=== PATIENT | male | born 1985 | race Caucasian/White ===

== ENCOUNTER 2017-11-24 10:22 | Emergency (ER) | payer OTHER ==
[~2017-11-24] VITALS: Ht 160 cm; Wt 59.0 kg
[~2017-11-24 10:22] MED LIST: ALBU1.25 NEB; ALBU18HF IH; AZIT250T PO; PRED20TA PO; PRED50TA PO
[2017-11-24 10:48] VITALS: BP 113/76
[2017-11-24] MEDS ORDERED: HYDR25TA PO (11:04)
[2017-11-24] MEDS ORDERED: PERM60CR12 TP (11:04)
--- NOTE | 2017-11-24 11:04 | PHYS DOC ---
Past History Past Medical History: Asthma Past Surgical History: No Surgical History Smoking: Cigarettes, Greater than 1 pack/day Alcohol Use: None Drug Use: None Adult General Chief Complaint Chief Complaint: SKIN RASH/ABSCESS HPI HPI Patient is a 31 year old male who presents with complaining of rash. Patient complaining of pruritic rash for few days that getting gradually worse and has more itching at night. Patient states he spent time at his friend's house who had the same rash. Patient denies fever and chills, shortness of breath, history of rash. Review of Systems Review of Systems Constitutional: Denies fever or chills [] Eyes: Denies change in visual acuity, redness, or eye pain [] HENT: Denies nasal congestion or sore throat [] Respiratory: Denies cough or shortness of breath [] Cardiovascular: No additional information not addressed in HPI [] GI: Denies abdominal pain, nausea, vomiting, bloody stools or diarrhea [] : Denies dysuria or hematuria [] Musculoskeletal: Denies back pain or joint pain [] Integument: Denies rash or skin lesions [] Neurologic: Denies headache, focal weakness or sensory changes [] Endocrine: Denies polyuria or polydipsia [] All other systems were reviewed and found to be within normal limits, except as documented in this note. Allergies Allergies Allergies Coded Allergies Type Severity Reaction Last Updated Verified No Known Drug Allergies 07/08/14 No Physical Exam Physical Exam Constitutional: Well developed, well nourished, mild distress, non-toxic appearance. [] HENT: Normocephalic, atraumatic, oropharynx moist, no oral exudates, nose normal. [] Eyes: PERRLA, EOMI, conjunctiva normal, no discharge. [] Neck: Normal range of motion, no tenderness, supple, no stridor. [] Cardiovascular:Heart rate regular rhythm, no murmur [] Lungs & Thorax: Bilateral breath sounds clear to auscultation [] Skin: Warm, dry, pruritic rash on upper and lower extremity and trunk and between fingers web Back: No tenderness, no CVA tenderness. [] Extremities: No tenderness, no cyanosis, no clubbing, ROM intact, no edema. [] Neurologic: Alert and oriented X 3, normal motor function, normal sensory function, no focal deficits noted. [] Psychologic: Affect normal, judgement normal, mood normal. [] Current Patient Data Vital Signs Vital Signs Date Time Temp Pulse Resp B/P (MAP) Pulse Ox O2 Delivery O2 Flow Rate FiO2 11/24/17 10:48 98.1 76 18 100 Room Air EKG EKG [] Radiology/Procedures Radiology/Procedures [] Course & Med Decision Making Course & Med Decision Making discharge: I've spoken with the patient and/or caregivers. I've explained the patient's condition, diagnosis and treatment plan based on information available to me at this time. I've answered the patient's and/or caregivers questions and addressed any concerns. The patient and/or caregivers have a good understanding the patient's diagnosis, condition and treatment plan as can be expected at this point. Vital signs have been stabilized. The patient's condition is stable for discharge from the emergency department. The patient will pursue further outpatient evaluation with her primary care provider or other designated consulting physician as outlined in the discharge instructions. Patient and/or caregivers are agreeable to this plan of care and follow-up instructions have been explained in detail. The patient and/or caregivers have received these instructions in written format and expressed understanding of these discharge instructions. The patient and her caregivers are aware that if any significant change in condition or worsening of symptoms should prompt him to immediately return to this of the closest emergency department. If an emergent department is not readily available I would encourage him to call 911. Mervin Disclaimer Dragon Disclaimer This electronic medical record was generated, in whole or in part, using a voice recognition dictation system. Departure Departure: Impression: Primary Impression: Scabies Disposition: HOME, SELF-CARE (at 1101) Condition: STABLE Referrals: PCP,NO (PCP) Patient Instructions: Scabies Additional Instructions: Follow-up with your primary care physician in 3-5 days Return to ER if not getting better Scripts Hydroxyzine Hcl (HYDROXYZINE HCL) 25 Mg Tablet 1 TAB PO TID PRN for ITCHING, #30 TAB Prov: OSWALDO POZO MD 11/24/17 Permethrin (PERMETHRIN) 60 Gm Cream..g. 1 [place] TP ONCE, #60 GM 1 Refill Prov: OSWALDO POZO MD 11/24/17 OSWALDO POZO MD Nov 24, 2017 11:04
== END 2017-11-24 11:10 | disposition home or self-care (01) ==
LOC: ER 10:22
DX: B86 Scabies (principal); J45.909 Unspecified asthma, uncomplicated; F17.210 Nicotine dependence, cigarettes, uncomplicated
CPT/HCPCS: 99283

== ENCOUNTER → 2020-05-02 | Outpatient (CLI) | payer OTHER ==
[~2020-05-02] MED LIST changes: -ALBU18HF IH; +ALBU2.5V8 IH; +HYDR25TA PO; +PERM60CR12 TP
--- NOTE | 2020-05-02 13:43 | RAD ---
INDICATION: Reason: Chest pain a couple of days. / Spl. Instructions: / History: COMPARISON: June 2014 FINDINGS: 2 view of chest obtained. Cardiac silhouette is unremarkable. Blunting of the right costophrenic angle. No definite focal airsp jamal consolidation IMPRESSION: * Blunting of the right costophrenic angle which could be from causes such as small pleural effusion or pleural thickening. Electronically signed by: Paul Angel MD (05/02/2020 1:41 PM) [id number]
== END ==
LOC: PMG 12:28
PROVIDERS: ATTEND Physician Assistant Medical
DX: R07.9 Chest pain, unspecified (principal)
CPT/HCPCS: 71046